=== PATIENT | female | born 1940 | race Caucasian/White ===

== ENCOUNTER 2017-06-18 12:01 | Outpatient (CLI) | payer MEDICARE, OTHER ==
--- NOTE | 2017-06-18 13:02 | XRAY Preliminary Report ---
Exam: XR FEMUR 2V LT IMPRESSION: No radiographic explanation for this lady's pain. If there is a need to further evaluate etiology of pain, MRI thigh should be considered. [facility] SITE ID: [id number]
--- NOTE | 2017-06-18 13:45 | XRAY Report ---
EXAM: LEFT FEMUR RADIOGRAPHY EXAM DATE: 06/18/2017 12:29 PM. CLINICAL HISTORY: Left thigh pain with history of cervical uterine cancer. COMPARISON: None. TECHNIQUE: 4 views. FINDINGS: Bones: Normal. No fracture or bone lesion. Joints: Normal left hip. Mild degenerative changes patellofemoral joint without knee effusion. Soft Tissues: Benign dystrophic calcification subcutaneous fat superior lateral thigh consistent with fat necrosis or old calcified injection granulomata. IMPRESSION: No radiographic explanation for this lady's pain. If there is a need to further evaluate etiology of pain, MRI thigh should be considered. [facility] Referring Provider Line: [phone] SITE ID: [id number]
== END 2017-06-18 12:02 | disposition home or self-care (01) ==
LOC: DI 12:01
PROVIDERS: ATTEND Family Medicine
DX: M79.652 Pain in left thigh (principal); Z85.41 Personal history of malignant neoplasm of cervix uteri; Z85.42 Personal history of malignant neoplasm of other parts of uterus; Z85.528 Personal history of other malignant neoplasm of kidney

== ENCOUNTER 2017-07-31 14:45 | Outpatient (CLI) | payer MEDICARE, OTHER ==
--- NOTE | 2017-08-01 15:55 | Mammography Report ---
DATE OF SERVICE: 07/31/2017 DIGITAL SCREENING MAMMOGRAM: 07/31/2017 CLINICAL INDICATION: A 77-year-old with history of late childbearing for screening. COMPARISON: 05/2013 TECHNIQUE: Routine CC and MLO projections were obtained of the breasts. FINDINGS: Parenchymal tissue within the breasts is predominantly fatty replaced. There are no dominant masses, suspicious microcalcifications, or secondary signs of malignancy. In comparison to the previous studies, there are no significant changes. IMPRESSION: NO MAMMOGRAPHIC EVIDENCE OF MALIGNANCY. NO SIGNIFICANT INTERVAL CHANGES. RECOMMENDATION: Screening mammography is recommended annually. BIRADS category 1 - negative. STANDARD QUALIFYING STATEMENTS: 1. This examination was reviewed with the aid of Computed-Aided Detection (CAD). 2. A negative or benign imaging report should not delay biopsy if clinically suspicious findings are present. Consider surgical consultation if warranted. More than 5% of cancers are not identified by imaging. 3. Dense breasts may obscure an underlying neoplasm. TD: 08/01/2017 15:55
== END 2017-07-31 14:46 | disposition home or self-care (01) ==
LOC: DI 14:45
PROVIDERS: ATTEND Family Medicine
DX: Z12.31 Encounter for screening mammogram for malignant neoplasm of breast (principal)
CPT/HCPCS: 77067

== ENCOUNTER 2018-05-19 14:25 | Outpatient (CLI) | payer MEDICARE, OTHER | END 2018-05-19 14:26 | disposition home or self-care (01) | LOC: SC 14:25 | PROVIDERS: ATTEND Internal Medicine Pulmonary Disease | DX: G47.33 Obstructive sleep apnea (adult) (pediatric) (principal) | CPT/HCPCS: 99203; G0463; 99212 ==

== ENCOUNTER 2018-06-11 10:35 | Outpatient (CLI) | payer MEDICARE, OTHER | END 2018-06-11 10:36 | disposition home or self-care (01) | LOC: SC 10:35 | PROVIDERS: ATTEND Nurse Practitioner Family | DX: G47.33 Obstructive sleep apnea (adult) (pediatric) (principal) | CPT/HCPCS: 99214; G0463; 99212 ==

== ENCOUNTER 2018-07-17 10:14 | Outpatient (CLI) | payer MEDICARE, OTHER | END 2018-07-17 10:15 | disposition home or self-care (01) | LOC: SC 10:14 | PROVIDERS: ATTEND Nurse Practitioner Family | DX: G47.33 Obstructive sleep apnea (adult) (pediatric) (principal); R03.0 Elevated blood-pressure reading, without diagnosis of hypertension | CPT/HCPCS: 99214; G0463; 99212 ==

== ENCOUNTER 2018-10-08 09:21 | Outpatient (CLI) | payer MEDICARE, OTHER | END 2018-10-08 09:22 | disposition home or self-care (01) | LOC: SC 09:21 | PROVIDERS: ATTEND Nurse Practitioner Family | DX: G47.33 Obstructive sleep apnea (adult) (pediatric) (principal) | CPT/HCPCS: 99215; G0463; 99212 ==

== ENCOUNTER 2019-09-15 11:43 | Outpatient (CLI) | payer MEDICARE, OTHER ==
--- NOTE | 2019-09-15 13:33 | SLEEP CARE CONSULTATION ---
Information from patient questionnaire entered by Lala Moy. I have reviewed and concur with the information entered by Lala Moy. This document represents the service I personally performed and the decisions made by me, Tanmay King MD, [facility]. History of Present Illness Previous diagnosis: Very Severe, Obstructive Sleep Apnea-Hypopnea Syndrome AHI: 64.1 Reason for follow up: other (11 month ) Equipment type: BiPAP Equipment obtained from: [employer] Mask style: Full face HPI additional information: Ms. Bennett returned today for follow up of BiPAP therapy. She was diagnosed to have very severe obstructive sleep apnea-hypopnea syndrome. The patient wears with a full face mask. She reports using the device nightly and all through the night. The compliance data show usage in 180 out of the past 180 nights, averaging 7.6 hours a night. The > 4 hour compliance rate for the past 180 days is 100%. She complained of scalp irritation in the back of her head from the headgear. She thinks that the pressure 25/20 cmH2O is comfortable. On the BiPAP therapy she notices improvement in her sleep quality, and that she wakes up feeling fresher in the morning and more awake/alert during the day. The [place] Sleepiness Scale score 10. The average residual AHI is 4.1; and average time in large leak per day is 48 minutes. CPAP Compliance Data - Data Reviewed with Patient Average duration of nightly device use: 7.65 Compliance rate %: 98.3 (180 days) Current pressure setting (cmH2O): 25/20 Humidity settin Heated hose settin Average residual AHI: 4.1 Average large leak: 46 min 1 sec Subjective Patient concerns: reports: aerophagia, air blowing in eyes, other (SCALP SWELLS) Initial [place] Sleepiness Scale score: 12 Current [place] Sleepiness Scale score: 10 Allergies and Home Medications Drug allergies reviewed: Yes Home medication list reviewed: Yes Review of Systems Review of systems same as previous: Yes Physical Exam Vital signs obtained and entered by: Physical exam is deferred due to the COVID- 19 pandemic. Height: 5 ft 5 in Impression and Plan IMPRESSION: 1. Obstructive Sleep Apnea-Hypopnea Syndrome, very severe, with the patient doing well on BiPAP therapy except for the uncomfortable headgear. She has excellent compliance and significant clinical improvement. The current pressure appears effective and comfortable. We looked at different masks and headgears. I recommend try a [employer] SimPlus full face mask and a cap-type headgear. She also needs some non-disposable filters that I recommend buying online because she is only allowed one every 6 months. PLAN: 1. Continue with BiPAP set at 25/20 cmH2O. 2. Try to lose weight 3. Try other masks and headgears. 4. Return in one year for follow up or earlier if there is any problem with the treatment. I spent 100% of this visit face to face with the patient with greater than 50% of this was spent time counseling the patient and coordination of care.
== END 2019-09-15 11:44 | disposition home or self-care (01) ==
LOC: SC 11:43
PROVIDERS: ATTEND Internal Medicine Pulmonary Disease
DX: G47.33 Obstructive sleep apnea (adult) (pediatric) (principal)
CPT/HCPCS: 99213; G0463; 99212

== ENCOUNTER 2020-09-22 08:35 | Outpatient (CLI) | payer MEDICARE, OTHER ==
--- NOTE | 2020-09-22 09:44 | SLEEP CARE CONSULTATION ---
Information from patient questionnaire entered by Lala Moy. I have reviewed and concur with the information entered by Llaa Moy. This document represents the service I personally performed and the decisions made by me, Floresita Biggs ARNP. History of Present Illness Service Date and Time: 09/22/2020 0835 Previous diagnosis: Very Severe, Obstructive Sleep Apnea-Hypopnea Syndrome AHI: 64.1 (in 2018)(38.1 in 2006) Reason for follow up: annual (last seen 08/2019) Equipment type: BiPAP Equipment obtained from: [employer] (getting supplies as needed; not happy about service, too impersonal) Mask style: Full face Mask brand: Respironics (Ultra Mirage) Backup mask available: Yes (old mask) Last cushion change: 1 week ago Prior sleep studies: Yes Year and Where: 2017 and 2006 [facility] Type of Sleep Study: Polysomnography (both were Split-night) HPI additional information: VLAD FERGUSON was diagnosed to have very severe, AHI 64.1, obstructive sleep apnea-hypopnea syndrome and returned today for BIPAP therapy annual follow-up. CPAP Compliance Data - Data Reviewed with Patient Average duration of nightly device use: 6 hr 51 min Compliance rate %: 95.6 (180 days) Current pressure setting (cmH2O): 25/20 Humidity settin Heated hose settin Average residual AHI: 6.3 Central apnea: 2.4 Obstructive apnea: 0.8 Hypopnea: 3.1 Average large leak: 47 min 51 sec Subjective Missed days of use due to: reports: other (Power outage) Patient concerns: reports: aerophagia (some days it can really bloat her stomach, causing burping and flatus), mask discomfort (would like to try a F30i), air blowing in eyes, mask leak noise, nasal congestion (usually at end of night if she sleeps 8 hours), dry mouth, nose, throat, other (snore while using device). denies: condensation in mask/hose, epistaxis Observed to snore while using device: Yes (all the time, wearing ear plugs) Current pressure setting perceived as: too low On therapy, patient: reports: sleeping better, awakening more refreshed, being more awake and alert during the day, more rested overall. denies: drowsiness while driving Initial [place] Sleepiness Scale score: 3 (in 2006) Current [place] Sleepiness Scale score: 0 Allergies and Home Medications Home medication list reviewed: Yes (added Advair Disc, ProAir HFR) Review of Systems Review of systems same as previous: Yes (no changes) Physical Exam Heart Rate: 53 O2 Saturation: 96 Height: 5 ft 5 in Weight: 266 lb Body Mass Index: 44.2 BMI Classification: Morbidly Obese Impression and Plan 1. Obstructive Sleep Apnea-Hypopnea Syndrome, very severe, with good treatment compliance and fair apnea control with minimal elevation of residual AHI. On BIPAP therapy, the patient has better sleep quality and is more rested overall. Patient has adequate apnea control at current settings. Patient feels the pressure settings are too low but she is currently at the top of the BIPAP settings. She has aerophagia that occasionally gets uncomfortable but she does not want to reduce her pressure settings since she already feels they are too low. She occasionally gets nasal congestion at the very end of the night. She states it doesn't happen unless she sleeps over the 7 hour gregoyr. She has no other issue with the nasal congestion. She is also getting some dry mouth. She is a mouth breather and is not able to tolerate a chin strap to keep her jaw closed. She has her humidity turned off and just gets humidity from bypass in the chamber. I advised her to check that her water level is full at the beginning of night. She doesn't change it daily and may be running out of water to add moisture to air. This can increase dry mouth and answer why she gets nasal congestion at the end of the night/coil winder hand if her water chamber is low or empty. She voiced understanding and will check on this. She feels her machine is not working/recording her sleep times right. She occasionally gets up and the machine says she only slept 3 hours or so but she knows she was in bed for at least 6.5 -7 hours. It also may not be giving her accurate mask checks. I will write to have her machine serviced. She would also like to try the F30i full face mask because she thinks it will fit better and help with her ability to keep her mouth closed. This will reduce dryness and improve mask fit test. We discussed possibly doing another titration study if needed since she has an elevated residual AHI, her pressure feels too low, aerophagia and because pressures are already about maxed out on her BIPAP. She does not want to change any settings right now but would like me to discuss with medical claims representative for advise. She would like to eventually change her DME for better personalized service, but not today. Patient's apnea severity and rationale for treatment to reduce apnea, improve sleep quality and reduce cardiovascular and cerebrovascular events was reviewed. I also reviewed the benefit of consistent device use of CPAP for hypertension and diabetes. * Continue auto BIPAP pressure at 25/20 cmH2O * Service machine * Try F30i full face mask * Notify me if snoring with mask or feeling that the pressure is too much or too little * Attempt to lose weight * Call this office if any problems using CPAP * Return for follow up in 1 year, or sooner if concerns arise Counseling Topics: Spare mask, Weight loss health impact Visit Type: In Office Time Spent with Patient (minutes): 38 Provider Statement: I spent 100% of the Face to Face Visit with the patient with greater than 50% spent counseling the patient and coordination of care.
--- OUTSIDE RECORDS SUMMARY | 2020-10-04 18:28 | EXTERNAL MEDICAL SUMMARY RPT | Continuity of Care Document ---
:1940 Demographics Phone Unavailable Preferred Language Kittitian Marital Status Unknown Druze Affiliation Unknown Race Unknown Ethnic Group Unknown Author Organization [facility] Address [address] [place] [address] Phone Care Team Providers Name Role Phone Dill Unavailable Unavailable Problems date description facility [id number] Chest pain, unspecified [facility] [id number] Other specified soft tissue disorders [facility] [id number] Respiratory arrest [facility] Social History date description facility [id number]
== END 2020-09-22 08:36 | disposition home or self-care (01) ==
LOC: SC 08:35
PROVIDERS: ATTEND Nurse Practitioner Family
DX: G47.33 Obstructive sleep apnea (adult) (pediatric) (principal); E66.01 Morbid (severe) obesity due to excess calories; Z68.41 Body mass index [BMI] 40.0-44.9, adult
CPT/HCPCS: 99214; G0463; 99212

== ENCOUNTER 2022-01-16 08:24 | Outpatient (CLI) | payer MEDICARE, OTHER ==
[2022-01-16 09:33] VITALS: BP 164/76
--- NOTE | 2022-01-16 09:33 | SLEEP CARE CONSULTATION ---
Information from patient questionnaire entered by Gabby Solitario MA. I have reviewed and concur with the information entered by Gabby Solitario MA. This document represents the service I personally performed and the decisions made by , Floresita Biggs ARNP. History of Present Illness Service Date and Time: 01/16/2022 0824 Previous diagnosis: Very Severe, Obstructive Sleep Apnea-Hypopnea Syndrome AHI: 64.1 (in 2018)(38.1 in 2006) Reason for follow up: annual (LAST SEEN 08/2020, JORDAN, MAGAÑA 06/14/2018, ) Accompanied by: Spouse Equipment type: BiPAP Equipment obtained from: [facility] (getting supplies as needed) Mask style: Full face (Ultra Mirage) Backup mask available: Yes (old mask) Prior sleep studies: Yes Year and Where: 2017 and 2006 - [facility] Type of Sleep Study: Polysomnography (both were Split-night) HPI additional information: VLAD FERGUSON was diagnosed to have very severe, AHI 64.1, obstructive sleep apnea-hypopnea syndrome and returned with spouse today for BIPAP therapy annual follow-up. Sleep Study - Results Type of Sleep Study: Polysomnography (both were Split-night) Prior sleep studies: Yes Year and Where: 2017 and 2006 - [facility] Subjective Patient concerns: reports: other (skin irritation, has papular rosacea). denies: aerophagia, mask discomfort, air blowing in eyes, mask leak noise, condensation in mask/hose, nasal congestion, dry mouth, nose, throat, epistaxis Observed to snore while using device: No Current pressure setting perceived as: comfortable On therapy, patient: reports: sleeping better, awakening more refreshed, being more awake and alert during the day, more rested overall Initial [place] Sleepiness Scale score: 3 (in 2006) Allergies and Home Medications Home medication list reviewed: Yes (Trilegy) Allergy and home medication list: Allergies No Known Drug Allergies Allergy (Verified 05/11/13 21:34) Review of Systems Review of systems same as previous: Yes (PACEMAKER LOOP) Physical Exam Vital signs obtained and entered by: Leanna SOLITARIO CMA AAMW Blood Pressure: 164/76 (RESP 20, PULSE 52, RIGHT) Heart Rate: 52 O2 Saturation: 96 Height: 5 ft 5 in Weight: 270 lb (CLOTHES) Body Mass Index: 44.9 BMI Classification: Morbidly Obese Impression and Plan 1. Obstructive Sleep Apnea-Hypopnea Syndrome, very severe, with good treatment compliance and good apnea control. On BIPAP therapy, the patient has better sleep quality and is more rested overall. Patient has papular rosacea and her fullface mask seems to exacerbate the soreness of her skin where it touches her face. She would like to try different mask that may be more comfortable. She is using the Ultra Mirage full face mask. I had Abe, our head registered vascular technologist (rvt), come in and fit her with a [employer] DreamWear full facemask, size medium cushion. Patient felt this was very comfortable and sample mask set was sent home with patient. If she should feel this is an improvement she may order this style mask cushions on her next supply order. Patient has a Dreamstation BiPAP that was last updated 05/2018. I informed the patient that [employer] has a recall on several devices like the patients machine. Patient was encouraged to register their device online with [employer] for the recall to see if their device is affected. If their device is affected they should start a claim. Patient denies any black particles seen in machine or hoses, any unusual odors coming from device. Patient has not experienced any physical symptoms such as upper airway irritation, headache, skin or eye irritation, asthma, nausea/vomiting, difficulty breathing or chest pain. If patient is not able to sleep due to waking up choking, gasping for air or other respiratory distress that they may decide to continue using it until it is either replaced or repaired. Patient has for life insurance. Her machine may be malfunctioning because we cannot get accurate compliance data offline. But states she only uses it for over 4 hours but she states she always uses it for almost 8 hours a night. She had this trouble last year and we had to have machine an SD card to be able to get her compliance. Because her machine is on the recall and may be malfunctioning, I will order her a new device. She will follow-up here once she gets her new machine. Compliance guidelines for new device and follow up discussed. Patient voiced understanding and agreement with plan. Patient's apnea severity and rationale for treatment to reduce apnea, improve sleep quality and reduce cardiovascular and cerebrovascular events was reviewed. I also reviewed the benefit of consistent device use of BIPAP for hypertension and diabetes. 2. Obesity, unspecified. Currently patients BMI is 44.9. Obesity increases the risk of apnea, CPAP pressure requirements and overall health risks especially cardiovascular and diabetes. Thus patient is advised to lose weight. * Continue BIPAP pressure at 25/20 cmH2O * Update machine * Update supplies * Given Dreamwear full face mask set, medium cushion to try * Notify me if snoring with mask or feeling that the pressure is too much or too little * Attempt to lose weight * Call this office if any problems using BIPAP * Return for follow up one month after obtaining new device, or sooner if concerns arise Mask provided: Yes Counseling Topics: Spare mask, Weight loss health impact Visit Type: In Office Other Participants: Spouse/Significant Other Time Spent with Patient (minutes): 34 Provider Statement: I spent 100% of the Face to Face Visit with the patient with greater than 50% spent counseling the patient and coordination of care.
== END 2022-01-16 08:25 | disposition home or self-care (01) ==
LOC: SC 08:24
PROVIDERS: ATTEND Nurse Practitioner Family
DX: G47.33 Obstructive sleep apnea (adult) (pediatric) (principal); E66.01 Morbid (severe) obesity due to excess calories; Z68.41 Body mass index [BMI] 40.0-44.9, adult
CPT/HCPCS: 99214; G0463; 99212

== ENCOUNTER 2022-01-30 12:50 | Outpatient (CLI) | payer MEDICARE, OTHER ==
[2022-01-30 13:37] VITALS: BP 120/78
--- NOTE | 2022-01-30 13:37 | SLEEP CARE CONSULTATION ---
Information from patient questionnaire entered by Gabby Pineda MA. I have reviewed and concur with the information entered by Gabby Pineda MA. This document represents the service I personally performed and the decisions made by , Floresita Biggs ARNP. History of Present Illness Service Date and Time: 01/30/2022 1250 Previous diagnosis: Very Severe, Obstructive Sleep Apnea-Hypopnea Syndrome AHI: 64.1 (in 2017)(38.1 in 2006) Reason for follow up: other (PT WANTS TO DISCUSS AHI) Accompanied by: Spouse Equipment type: BiPAP Equipment obtained from: [employer] (getting supplies as needed) Mask style: Full face (Ultra Mirage) Mask brand: [employer] (Dreamwear) Backup mask available: Yes (old mask) Prior sleep studies: Yes Year and Where: 2017 and 2006 - [facility] Type of Sleep Study: Polysomnography (both were Split-night) HPI additional information: VLAD FERGUSON was diagnosed to have very severe, AHI 64.1, obstructive sleep apnea-hypopnea syndrome and returned today for BIPAP therapy about 3 weeks follow-up with questions on AHI. Sleep Study - Results Type of Sleep Study: Polysomnography (both were Split-night) Prior sleep studies: Yes Year and Where: 2017 and 2006 - [facility] CPAP Compliance Data - Data Reviewed with Patient Average duration of nightly device use: 7 hours 51 minutes Compliance rate %: 84.4 (76/90 days used) Current pressure setting (cmH2O): 25/20 Average residual AHI: 5.6 Central apnea: 2 Obstructive apnea: 1.3 Hypopnea: 2.3 Average large leak: 16 minutes 24 secs Subjective Patient concerns: reports: mask discomfort (better with new mask rec'vd at last appointment). denies: aerophagia, air blowing in eyes, mask leak noise, condensation in mask/hose, nasal congestion, dry mouth, nose, throat, epistaxis, other Observed to snore while using device: No Current pressure setting perceived as: comfortable On therapy, patient: reports: sleeping better, awakening more refreshed, being more awake and alert during the day, more rested overall, drowsiness while driving Initial [place] Sleepiness Scale score: 3 (in 2006) Current [place] Sleepiness Scale score: 1 (01/29/2022) Allergies and Home Medications Home medication list reviewed: Yes (no changes) Allergy and home medication list: Allergies No Known Drug Allergies Allergy (Verified 05/11/13 21:34) Review of Systems Review of systems same as previous: Yes (PACE MAKER LOOP) Physical Exam Vital signs obtained and entered by: ASMITA HEMPHILL Blood Pressure: 120/78 (RIGHT, RESP 18, PULSE 56) Heart Rate: 54 O2 Saturation: 96 Height: 5 ft 5 in Weight: 270 lb (CLOTHES) Body Mass Index: 44.9 BMI Classification: Morbidly Obese Impression and Plan 1. Obstructive Sleep Apnea-Hypopnea Syndrome, very severe, with good treatment compliance and good apnea control with minimal elevation of residual AHI. On BIPAP therapy, the patient has better sleep quality and is more rested overall. Patient returns 2 weeks after last appointment because she felt we did not fully discuss her residual AHI. I went over again the information from her last visit 2 weeks ago. She does have minimal elevation of her residual AHI at 5.6. Patient BiPAP therapy is not top pressures of 25\20 cm H2O. She is getting the best therapy with her current pressure settings. This is also improved from her visit last year when the residual AHI was elevated at 6.3. She voiced understanding and was grateful for the explanation. Patient's apnea severity and rationale for treatment to reduce apnea, improve sleep quality and reduce cardiovascular and cerebrovascular events was reviewed. I also reviewed the benefit of consistent device use of BIPAP for hypertension and diabetes. Patient asking about her machine being replaced because they have not heard anything from the DME. I told her they have to get authorization from the insurance to be able to replace the machine first and then they will call her to let her know if the insurance has approved the machine update. Her machine appears to be malfunctioning and I wrote for a replacement at her last visit 2 weeks ago. She voiced understanding. Patient also concerned that she is not wearing her mask correctly. We fitted her with a Dreamwear fullface mask at her last visit. She states it is very comfortable but sometimes the bottom will pull up on her chin. I had her apply the mask to her face and showed her how to adjust it to be more comfortable. I advised her to try lying down first before she tightens up the straps on the headgear. This will reduce the mask not fitting well because her face does change when she lays down from a sitting position. She voiced understanding and will try this at home. * Continue BIPAP pressure at 25/20 cmH2O * Notify me if snoring with mask or feeling that the pressure is too much or too little * Attempt to lose weight * Call this office if any problems using CPAP * Return for follow up after obtains new device or 1 year (if insurance does not replace device), or sooner if concerns arise Counseling Topics: Spare mask Visit Type: In Office Other Participants: Spouse/Significant Other Time Spent with Patient (minutes): 29 Provider Statement: I spent 100% of the Face to Face Visit with the patient with greater than 50% spent counseling the patient and coordination of care.
== END 2022-01-30 12:51 | disposition home or self-care (01) ==
LOC: SC 12:50
PROVIDERS: ATTEND Nurse Practitioner Family
DX: G47.33 Obstructive sleep apnea (adult) (pediatric) (principal); E66.01 Morbid (severe) obesity due to excess calories; Z68.41 Body mass index [BMI] 40.0-44.9, adult
CPT/HCPCS: 99213; G0463; 99212

== ENCOUNTER 2022-10-24 10:27 | Outpatient (CLI) | payer MEDICARE, OTHER ==
--- NOTE | 2022-10-24 11:32 | Ultrasound Report ---
PROCEDURE: Duplex Ext Veins Left INDICATIONS: HEMATOMA LEFT LOWER LEG TECHNIQUE: Real-time imaging, as well as color and pulse Doppler interrogation, were performed of the lower extr emity deep veins from the inguinal ligament to the popliteal fossa. COMPARISON: None. FINDINGS: The deep veins are normally compressible, and free of intraluminal thrombus. Color and pu lse Doppler demonstrate normal phasic intraluminal flow. There is normal augmentation response to di stal compression maneuver. Complex fluid collection in posterior mid calf soft tissue measures 14.9 x 2.9 x 6.1 cm in size witho mo internal vascularity IMPRESSION: 1. No evidence of DVT in visualized left lower extremity veins. 2. Likely organizing hematoma in left calf soft tissue as above. Reviewed by: Mayo Robledo MD on 10/24/2022 11:31 AM PDT Approved by: Mayo Robledo MD on 10/24/2022 11:31 AM PDT Station ID: [id number]
== END 2022-10-24 10:28 | disposition home or self-care (01) ==
LOC: DI 10:27
PROVIDERS: ATTEND Family Medicine
DX: S80.12XA Contusion of left lower leg, initial encounter (principal)

== ENCOUNTER 2023-08-09 12:55 | Outpatient (CLI) | payer MEDICARE, OTHER | END 2023-08-09 12:56 | disposition short-term general hospital (02) | LOC: EMS 12:55 | DX: S09.90XA Unspecified injury of head, initial encounter (principal); W01.0XXA Fall on same level from slipping, tripping and stumbling without subsequent striking against object, initial encounter; Z79.01 Long term (current) use of anticoagulants | CPT/HCPCS: A0425; A0429; A0888 ==

== ENCOUNTER 2023-10-03 11:33 | Outpatient (CLI) | payer MEDICARE, OTHER | END 2023-10-03 11:34 | disposition short-term general hospital (02) | LOC: EMS 11:33 | DX: R06.09 Other forms of dyspnea (principal) | CPT/HCPCS: A0425; A0429 ==

== ENCOUNTER 2023-10-28 12:55 | Outpatient (CLI) | payer MEDICARE, OTHER | END 2023-10-28 23:59 | disposition short-term general hospital (02) | LOC: EMS 12:55 | DX: I10 Essential (primary) hypertension (principal); R42 Dizziness and giddiness; I48.91 Unspecified atrial fibrillation | CPT/HCPCS: A0425; A0427 ==

== ENCOUNTER 2023-12-12 15:27 | Outpatient (CLI) | payer MEDICARE, OTHER ==
[2023-12-12 16:42] LABS: CREATININE 1.1 mg/dL (0.6-1.3)
[2023-12-12] MEDS ORDERED: iohexoL-300 100 ML VIAL ONE (16:43)
[2023-12-12] MEDS: iohexoL-300 100 ML VIAL IVP ONE (17:27)
--- NOTE | 2023-12-12 17:56 | CT Report ---
PROCEDURE: Soft Tissue Neck W INDICATIONS: HIST OF MULTIPLE CANCERS, NECK MASS CONTRAST: 100ML [id number]. TECHNIQUE: After the administration of intravenous contrast, 3.0 mm axial sections acquired from the sella to th e aortic arch. Additional oblique axial 3.0 mm sections acquired through the pharynx. 3 mm thick co len reformats were generated. For radiation dose reduction, the following was used: automated exp osure control, adjustment of mA and/or kV according to patient size. COMPARISON: None. FINDINGS: Image quality: Diagnostic Brain: Partially visualized, unremarkable. Orbits: [Replacements. No discrete masses Mouth and pharynx: Tonsils are unremarkable. No measurable mass. No abscess. Airway: Patent. Neck spaces: No masses or abscess. No lymphadenopathy. Glands: Unremarkable. No actionable thyroid nodules. Vessels: Vascular calcifications, with likely significant calcification of the carotid bulbs bilatera lly. Cavernous carotid calcifications also seen. Upper chest: Unremarkable. No apical pneumothorax. Sinuses and mastoids: No significant opacification. Bones: Degenerative changes. Heterogeneity with lucency and sclerosis at T3-T4 partially seen. IMPRESSION: No discrete soft tissue mass, drainable fluid collection, or lymphadenopathy by size criterion in the neck. If there is further concern, consider focused ultrasound, versus MRI with a BB marker marking the site of clinical concern. Heterogeneously of the T3 and T4 vertebral bodies with lucency and sclerosis. Consider dedicated imag ing of this location if there is concern for malignancy history. Reviewed by: Juan Francisco Tran MD on 12/12/2023 5:55 PM PDT Approved by: Juan Francisco Tran MD on 12/12/2023 5:55 PM PDT Station ID: [id number]
== END 2023-12-12 15:28 | disposition home or self-care (01) ==
LOC: DI 15:27
PROVIDERS: ATTEND Student in an Organized Health Care Education/Training Program
DX: R22.1 Localized swelling, mass and lump, neck (principal); Z85.9 Personal history of malignant neoplasm, unspecified
CPT/HCPCS: 36415; 70491; 82565; Q9967

== ENCOUNTER 2024-01-16 14:29 | Outpatient (CLI) | payer MEDICARE, OTHER ==
--- NOTE | 2024-01-16 15:16 | SLEEP CARE CONSULTATION ---
Information from patient questionnaire entered by Mayi Franco. I have reviewed and concur with the information entered by Mayi Franco. This document represents the service I personally performed and the decisions made by me, Floresiat Biggs ARNP. History of Present Illness Service Date and Time: 01/16/2024 1429 Previous diagnosis: Very Severe, Obstructive Sleep Apnea-Hypopnea Syndrome AHI: 64.1 (in 2017)(38.1 in 2006) Accompanied by: Spouse (Ag) Equipment type: BiPAP (NEED MACHINE) Equipment obtained from: [employer] (getting supplies as needed) Mask style: Full face (Ultra Mirage) Backup mask available: Yes [facility]: Yes [facility] Type of Sleep Study: Polysomnography (both were Split-night) HPI additional information: VLAD FERGUSON was diagnosed to have very severe, AHI 64.1, obstructive sleep apnea-hypopnea syndrome and returned today for BIPAP therapy annual follow-up. Sleep Study - Results Type of Sleep Study: Polysomnography (both were Split-night) Prior sleep studies: Yes [facility] and [facility] CP[facility] Compliance Data - Data Reviewed with Patient Average duration of nightly device use: 6 hours 49 minutes Compliance rate %: 100 (10/18/2023-01/15/2024) Current pressure setting (cmH2O): 25/20 Average residual AHI: 7 Average large leak: 2 hours 24 minutes 50 secs Compliance data discussion: She says her BiPAP broke about a month ago and she has been try to use it but it does not coelho Bilevel pressure. She cannot sometimes breathe out through the pressure. Subjective Missed days of use due to: reports: other (machine malfunctioning) Patient concerns: denies: aerophagia, mask discomfort, air blowing in eyes, mask leak noise, condensation in mask/hose, nasal congestion, dry mouth, nose, throat, epistaxis Observed to snore while using device: No Current pressure setting perceived as: comfortable On therapy, patient: reports: sleeping better, awakening more refreshed, being more awake and alert during the day, more rested overall, other (feels this when her machine is working properly). denies: drowsiness while driving Initial [place] Sleepiness Scale score: 3 (in 2006) Current [place] Sleepiness Scale score: 3 (01/16/24) Allergies and Home Medications Known drug allergies: No Drug allergies reviewed: Yes Home medication list reviewed: Yes (no changes) Allergy and home medication list: Allergies No Known Drug Allergies Allergy (Verified 01/15/24 14:52) Review of Systems Review of systems same as previous: Yes (NO CHANGE) Physical Exam Vital signs obtained and entered by: MAYI Escoto MA Blood Pressure: 166/62 (LEFT ARM) Cuff size: long Heart Rate: 66 O2 Saturation: 95 Height: 5 ft 5 in Weight: 245 lb 9.6 oz Body Mass Index: 40.8 BMI Classification: Morbidly Obese Impression and Plan 1. Obstructive Sleep Apnea-Hypopnea Syndrome, very severe, with good treatment compliance and good apnea control. On BIPAP therapy, the patient has better sleep quality and is more rested overall. She had a heart attack 7 weeks ago and then her machine started malfunctioning. She says it does not deliver the pressure as it did before and she is feeling more tired, less rested overall. It is only one pressure constant and sometimes she will wake up not being able to breathe against the pressure. She is very concerned that she needs to use her machine where she might stop breathing at night. So she continues to use it every night even though the pressure is not blowing right. He BiPAP was last updated in 2018. The patients BiPAP is over 5 years old and of reasonable use. Thus, the CPAP will be updated. A DWO prescription will be made. Compliance guidelines for new device and follow up discussed.Patient's apnea severity and rationale for treatment to reduce apnea, improve sleep quality and reduce cardiovascular and cerebrovascular events was reviewed. I also reviewed the benefit of consistent device use of BIPAP for hypertension, diabetes. 2. Obesity, unspecified. Currently patients BMI is 40.8. Obesity increases the risk of apnea, BIPAP pressure requirements and overall health risks especially cardiovascular and diabetes. Thus patient is advised to lose weight. * Continue BIPAP pressure at 25/20 cmH2O * DME Transfer * Update machine--urgent set up * Update supply prescription * Notify me if snoring with mask or feeling that the pressure is too much or too little * Attempt to lose weight * Call this office if any problems using BIPAP * Return for follow up one month after obtaining new device, or sooner if concerns arise Counseling Topics: Spare mask, Weight loss health impact Prescriptions: BiPAP, Device supplies (with DME transfer and urgent setup) Visit Type: In Office Time Spent with Patient (minutes): 36 Provider Statement: I spent 100% of the Face to Face Visit with the patient with greater than 50% spent counseling the patient and coordination of care.
[2024-01-16 15:19] VITALS: BP 166/62; O2SAT 95
== END 2024-01-16 14:30 | disposition home or self-care (01) ==
LOC: SC 14:29
PROVIDERS: ATTEND Nurse Practitioner Family
DX: G47.33 Obstructive sleep apnea (adult) (pediatric) (principal); E66.01 Morbid (severe) obesity due to excess calories; Z68.41 Body mass index [BMI] 40.0-44.9, adult
CPT/HCPCS: 99214; G0463; 99212

== ENCOUNTER 2024-02-07 08:20 | Outpatient (CLI) | payer MEDICARE, OTHER ==
--- NOTE | 2024-02-07 12:01 | Ultrasound Report ---
PROCEDURE: Soft Tissue Head or Neck INDICATIONS: NECK MASS TECHNIQUE: Real-time scanning was performed of the left posterior neck region of current clinical concern, with image documentation. COMPARISON: Prior soft tissue ultrasound 12/09/2023. FINDINGS: The patient assisted in localizing the area of left posterior neck swelling, and a questio nable area of subtle hypoechoic soft tissue was identified (a questionable finding) measuring approxi mately 2.0 x 2.0 x 1.7 cm. IMPRESSION: Questionable subtle soft tissue area that is slightly hypoechoic compared to adjacent so ft tissues was identified measuring as discussed above. This does not represent a definite mass. Keyur rossi, given the clinical concern and this questionable appearance follow-up by soft tissue MR scanning with contrast may be warranted depending on the clinical status. Alternatively sequential clinical f ollow-up may be warranted. The patient carries a history of prior cervical/uterine carcinoma. Reviewed by: Jose F Ray MD on 02/07/2024 12:00 PM PDT Approved by: Jose F Ray MD on 02/07/2024 12:00 PM PDT Station ID: [id number]
== END 2024-02-07 08:21 | disposition home or self-care (01) ==
LOC: DI 08:20
PROVIDERS: ATTEND Family Medicine
DX: R22.1 Localized swelling, mass and lump, neck (principal); Z85.41 Personal history of malignant neoplasm of cervix uteri; Z85.42 Personal history of malignant neoplasm of other parts of uterus

== ENCOUNTER 2024-02-19 15:18 | Outpatient (CLI) | payer MEDICARE, OTHER ==
[~2024-02-19 15:18] MED LIST: GADOTERATE MEGLUMINE 10 MMOL/20 ML VIAL ONE; GADOTERATE MEGLUMINE 5 MMOL/10 ML VIAL ONE
[2024-02-19] MEDS: GADOTERATE MEGLUMINE 10 MMOL/20 ML VIAL IVP ONE (18:27)
[2024-02-19] MEDS: GADOTERATE MEGLUMINE 5 MMOL/10 ML VIAL IVP ONE (18:28)
--- NOTE | 2024-02-21 12:29 | MRI Report ---
PROCEDURE: Soft Tissue Neck W/WO INDICATIONS: LEFT POSTERIOR NECK PALPABLE FULLNESS CONTRAST: clariscan 22ml TECHNIQUE: Sagittal/axial/coronal T1 spin echo and STIR. After the administration of contrast, axial/coronal/sa gittal T1 fast spin echo with fat saturation through the neck. COMPARISON: None. FINDINGS: Lymph nodes: No enlarged nodes are seen throughout the neck. Vessels: Visualized vasculature appears normal, with simeon flow voids and enhancement. Neck spaces: The oropharynx, nasopharynx and pharynx are unremarkable, without mucosal lesions seen. Vocal cords, false vocal cords, pyriform sinuses, epiglottis, vallecula, and tongue base all appear normal. Extramucosal spaces of the neck also appear unremarkable. Glands: The parotid and submandibular glands appear normal. The thyroid is normal in size and there are no incidental findings. Miscellaneous: Visualized brain and orbits appear normal. Lung apices appear clear. Superficial so ft tissues appear normal. Visualized sinuses and mastoids appear clear. Bones: Marrow has normal overall signal. At the area of concern marked in the left posterior neck, there is no evidence of mass lesion. IMPRESSION: Unremarkable MRI of the neck without evidence of mass lesion Reviewed by: Sanchez Hogue MD on 02/21/2024 11:28 AM ZORA Approved by: Sanchez Hogue MD on 02/21/2024 11:28 AM ZORA Station ID: [id number]
== END 2024-02-19 15:19 | disposition home or self-care (01) ==
LOC: DI 15:18
PROVIDERS: ATTEND Family Medicine
DX: R22.1 Localized swelling, mass and lump, neck (principal)
CPT/HCPCS: 70543; A9575

== ENCOUNTER 2024-02-25 08:33 | Outpatient (CLI) | payer MEDICARE, OTHER ==
--- NOTE | 2024-02-25 09:24 | Sleep Patient Instructions ---
Sleep Center Visit Summary - Patient Visit Information Reason for Visit: First compliance after machine update - Patient Instructions Additional Instructions: You were here for compliance follow up of BIPAP therapy/new device. You will be continued on BiPAP therapy with pressure at 25/20 cmH2O. I will send request for the 10 ft CPAP hose as we discussed. You should follow up with sleep care in 12 months. You may contact us sooner for any questions or concerns. - Clinic Information Contact: [facility] [address] [place] [address] [email or web address] T: [phone]
--- NOTE | 2024-02-25 09:31 | SLEEP CARE CONSULTATION ---
Information from patient questionnaire entered by Kerwin Horta. I have reviewed and concur with the information entered by Kerwin Horta. This document represents the service I personally performed and the decisions made by , Floresita Biggs ARNP. History of Present Illness Service Date and Time: 02/25/2024 0833 Previous diagnosis: Very Severe, Obstructive Sleep Apnea-Hypopnea Syndrome AHI: 64.1 (in 2017)(38.1 in 2006) Reason for follow up: first compliance (Set up 01/15), first compliance after device update Equipment type: BiPAP (ResMed Aircurve 10, s/u 01/15) Equipment obtained from: Other ([employer]) Mask style: Full face (Ultra Mirage) [facility] sleep [facility]: Yes [facility] Type of Sleep Study: Polysomnography (both were Split-night) HPI additional information: VLAD FERGUSON was diagnosed to have very severe, AHI 64.1, obstructive sleep apnea-hypopnea syndrome and returned today with spouse for BIPAP therapy first compliance after updating device follow-up. Sleep Study - Results Type of Sleep Study: Polysomnography (both were Split-night) Prior sleep studies: Yes Year and Where[facility] 2017 [facility] Compliance Data - Data Reviewed with Patient Average duration of nightly device use: 7 h 35 min Compliance rate %: 97 (30/30 days used) Current pressure setting (cmH2O): 25/20 Average residual AHI: 6 (1.1 unknown) Central apnea: 2.4 Obstructive apnea: 0 Hypopnea: 1.7 Average large leak: 13.2 L/min Subjective Patient concerns: reports: mask leak noise, nasal congestion, dry mouth, nose, throat, other (Snore while using device). denies: aerophagia, mask discomfort, air blowing in eyes, condensation in mask/hose, epistaxis Observed to snore while using device: No Current pressure setting perceived as: comfortable On therapy, patient: reports: sleeping better, awakening more refreshed, being more awake and alert during the day, more rested overall. denies: drowsiness while driving Initial [place] Sleepiness Scale score: 3 (in 2006) Current [place] Sleepiness Scale score: 2 Allergies and Home Medications Known drug allergies: No Drug allergies reviewed: Yes Home medication list reviewed: Yes (no changes) Allergy and home medication list: Allergies No Known Drug Allergies Allergy Review of Systems Review of systems same as previous: Yes (no changes) Physical Exam Vital signs obtained and entered by: Floresita Godinez NP Blood Pressure: 161/70 Cuff size: long (left arm) Heart Rate: 55 O2 Saturation: 98 Height: 5 ft 5 in Weight: 241 lb 9.6 oz Weight change since last visit: 4 lb loss Body Mass Index: 40.1 BMI Classification: Morbidly Obese Impression and Plan 1. Obstructive Sleep Apnea-Hypopnea Syndrome, very severe, with good treatment compliance and good apnea control. On BiPAP therapy, the patient has better sleep quality and is more rested overall. Patient has significant improvement of her sleep apnea although it appears to be slightly ineffective. Her average large leaks are elevated and she appears to have elevated central and hypopnea as well as unknown index. I think the elevation is due to these large leaks and we discussed ways to reduce the leaking. She is going to try a chinstrap because she may be oral venting and making sure she is getting a good seal on her mask. Patient is at maximum pressure for the BiPAP and her obstructive index is at 0, I do not think we need to do any adjustments today. Patient's apnea severity and rationale for treatment to reduce apnea, improve sleep quality and reduce cardiovascular and cerebrovascular events was reviewed. I also reviewed the benefit of consistent device use of BiPAP for hypertension, diabetes. 2. Obesity, unspecified. Currently patients BMI is 40.1. Obesity increases the risk of apnea, BiPAP pressure requirements and overall health risks especially cardiovascular and diabetes. Thus patient is advised to continue to try to lose weight. * Continue BiPAP pressure at 25/20 cmH2O * 10 ft hose for CPAP replacement * Notify me if snoring with mask or feeling that the pressure is too much or too little * Attempt to lose weight * Call this office if any problems using CPAP * Return for follow up in 12 months, or sooner if concerns arise Counseling Topics: Spare mask, Weight loss health impact Prescriptions: Other (10 ft hose ) Follow up with Sleep Care in: 1 year Visit Type: In Office Time Spent with Patient (minutes): 28 Provider Statement: I spent 100% of the Face to Face Visit with the patient with greater than 50% spent counseling the patient and coordination of care.
[2024-02-25 09:41] VITALS: BP 161/70; O2SAT 98
== END 2024-02-25 08:34 | disposition home or self-care (01) ==
LOC: SC 08:33
PROVIDERS: ATTEND Nurse Practitioner Family
DX: G47.33 Obstructive sleep apnea (adult) (pediatric) (principal); E66.01 Morbid (severe) obesity due to excess calories; Z68.41 Body mass index [BMI] 40.0-44.9, adult
CPT/HCPCS: 99213; G0463; 99212